=== PATIENT | female | born 1985 | race Caucasian/White ===

== ENCOUNTER 2016-09-04 00:23 | Emergency (ER) | payer OTHER ==
[2016-09-04] MEDS ORDERED: SODIUM CHLORIDE 0.9% 1,000 ML IV STA (00:46)
[2016-09-04 01:00] VITALS: RESP 16
--- NOTE | 2016-09-04 01:17 | ED ---
Abdominal Pain HPI - General Chief Complaint: Abdominal Pain Stated Complaint: lower abd pain Time Seen by Provider: 09/04/16 00:44 Source: patient, RN notes reviewed Mode of arrival: ambulatory Limitations: no limitations - History of Present Illness Initial Comments: 31-year-old female presents emergency Department chief complaint of right lower quadrant abdominal pain. Patient states started last 2 days. Patient states that she is test found out. Patient states her last menstrual cycle was 4 weeks ago. Patient is A1. Patient denies any nausea, vomiting diarrhea constipation. Denies any vaginal bleeding or vaginal discharge. Denies any dysuria hematuria. She states that she does have polycystic ovarian disease and states that it slowly resembles ovarian cyst feeling. Patient states that she sees an [employer] and [facility] - Related Data Home Medications Medication Instructions Recorded Confirmed Pnv with Ca,No.72/Iron/FA 1 tab PO DAILY 09/21/15 09/04/16 [ Plus Tablet] FLUoxetine HCL [Fluoxetine HCl] 20 mg PO HS 05/03/16 09/04/16 Allergies Allergy/AdvReac Type Severity Reaction Status Date / Time hydromorphone [From Dilaudid] Allergy Rash/Hives Verified 09/04/16 00:33 morphine Allergy Anaphylaxis Verified 07/02/16 18:14 Review of Systems ROS Statement: Those systems with pertinent positive or pertinent negative responses have been documented in the HPI. ROS Other: All systems not noted in ROS Statement are negative. 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 Absent: tenderness, meningismus, lymphadenopathy Respiratory exam: Present: normal lung sounds bilaterally. Absent: respiratory distress, wheezes, rales, rhonchi, stridor Cardiovascular Exam: Present: regular rate, normal rhythm, normal heart sounds. Absent: systolic murmur, diastolic murmur, rubs, gallop, clicks GI/Abdominal exam: Present: soft, tenderness (Mild suprapubic to right lower quadrant tenderness), normal bowel sounds. Absent: distended, guarding, rebound , rigid Back exam: Absent: CVA tenderness (R), CVA tenderness (L) Neurological exam: Present: alert, oriented X3, CN II-XII intact Skin exam: Present: warm, dry, intact, normal color. Absent: rash Course Vital Signs 09/04/16 09/04/16 00:30 00:59 Temperature 98.0 F 98.9 F Pulse Rate 90 87 Respiratory 18 16 Rate Blood Pressure 123/69 120/64 O2 Sat by Pulse 100 99 Oximetry Medical Decision Making - Medical Decision Making 31-year-old female presented emergency department for abdominal pain and . Patient's ultrasound shows gestational sac early . Patient 's laboratory within normal limits. Patient does not want a pelvic exam were rather have [employer] to this. Patient will be discharged with follow-up. Return parameters were discussed. - Lab Data Result diagrams: 09/04/16 00:48 09/04/16 00:48 Lab Results 09/04/16 09/04/16 09/04/16 Range/Units 00:48 00:48 00:48 WBC 8.6 (3.8-10.6) k/uL RBC 4.42 (3.80-5.40) m/uL Hgb 13.0 (11.4-16.0) gm/dL Hct 37.5 (34.0-46.0) % MCV 84.9 (80.0-100.0) fL MCH 29.5 (25.0-35.0) pg MCHC 34.7 (31.0-37.0) g/dL RDW 12.9 (11.5-15.5) % Plt Count 263 (150-450) k/uL Neutrophils % 57 % Lymphocytes % 32 % Monocytes % 6 % Eosinophils % 3 % Basophils % 1 % Neutrophils # 4.9 (1.3-7.7) k/uL Lymphocytes # 2.7 (1.0-4.8) k/uL Monocytes # 0.5 (0-1.0) k/uL Eosinophils # 0.3 (0-0.7) k/uL Basophils # 0.1 (0-0.2) k/uL Sodium 142 (137-145) mmol/L Potassium 3.9 (3.5-5.1) mmol/L Chloride 110 H (98-107) mmol/L Carbon Dioxide 21 L (22-30) mmol/L Anion Gap 11 mmol/L BUN 8 (7-17) mg/dL Creatinine 0.60 (0.52-1.04) mg/dL Est GFR (MDRD) Af Amer >60 (>60 ml/min/1.73 sqM) Est GFR (MDRD) Non-Af >60 (>60 ml/min/1.73 sqM) Glucose 100 H (74-99) mg/dL Calcium 9.0 (8.4-10.2) mg/dL Total Bilirubin 0.3 (0.2-1.3) mg/dL AST 21 (14-36) U/L ALT 47 (9-52) U/L Alkaline Phosphatase 58 (38-126) U/L Total Protein 6.8 (6.3-8.2) g/dL Albumin 4.1 (3.5-5.0) g/dL Amylase <30 L (30-110) U/L Lipase 110 (23-300) U/L HCG, Quant mIU/mL Urine Color Urine Appearance (Clear) Urine pH (5.0-8.0) Ur Specific [place] (1.001-1.035) Urine Protein (Negative) Urine Glucose (UA) (Negative) Urine Ketones (Negative) Urine Blood (Negative) Urine Nitrate (Negative) Urine Bilirubin (Negative) Urine Urobilinogen (<2.0) mg/dL Ur Leukocyte Esterase (Negative) Urine RBC (0-5) /hpf Urine WBC (0-5) /hpf Ur Squamous Epith Cells (0-4) /hpf Urine Bacteria (None) /hpf Urine Mucus (None) /hpf Urine HCG, Qual Detected (Not Detectd) 09/04/16 09/04/16 Range/Units 00:48 00:48 WBC (3.8-10.6) k/uL RBC (3.80-5.40) m/uL Hgb (11.4-16.0) gm/dL Hct (34.0-46.0) % MCV (80.0-100.0) fL MCH (25.0-35.0) pg MCHC (31.0-37.0) g/dL RDW (11.5-15.5) % Plt Count (150-450) k/uL Neutrophils % % Lymphocytes % % Monocytes % % Eosinophils % % Basophils % % Neutrophils # (1.3-7.7) k/uL Lymphocytes # (1.0-4.8) k/uL Monocytes # (0-1.0) k/uL Eosinophils # (0-0.7) k/uL Basophils # (0-0.2) k/uL Sodium (137-145) mmol/L Potassium (3.5-5.1) mmol/L Chloride (98-107) mmol/L Carbon Dioxide (22-30) mmol/L Anion Gap mmol/L BUN (7-17) mg/dL Creatinine (0.52-1.04) mg/dL Est GFR (MDRD) Af Amer (>60 ml/min/1.73 sqM) Est GFR (MDRD) Non-Af (>60 ml/min/1.73 sqM) Glucose (74-99) mg/dL Calcium (8.4-10.2) mg/dL Total Bilirubin (0.2-1.3) mg/dL AST (14-36) U/L ALT (9-52) U/L Alkaline Phosphatase (38-126) U/L Total Protein (6.3-8.2) g/dL Albumin (3.5-5.0) g/dL Amylase (30-110) U/L Lipase (23-300) U/L HCG, Quant 2363.3 mIU/mL Urine Color Yellow Urine Appearance Clear (Clear) Urine pH 6.0 (5.0-8.0) Ur Specific [place] 1.029 (1.001-1.035) Urine Protein 1+ H (Negative) Urine Glucose (UA) Negative (Negative) Urine Ketones Trace H (Negative) Urine Blood Negative (Negative) Urine Nitrate Negative (Negative) Urine Bilirubin Negative (Negative) Urine Urobilinogen 2.0 (<2.0) mg/dL Ur Leukocyte Esterase Negative (Negative) Urine RBC 2 (0-5) /hpf Urine WBC 5 (0-5) /hpf Ur Squamous Epith Cells 8 H (0-4) /hpf Urine Bacteria Rare H (None) /hpf Urine Mucus Few H (None) /hpf Urine HCG, Qual (Not Detectd) Disposition Clinical Impression: Abdominal pain during , Ovarian cyst Disposition: HOME SELF-CARE Condition: Stable Instructions: Abdominal Pain in (ED) Additional Instructions: Please return to the Emergency Department if symptoms worsen or any other concerns. Time of Disposition: 03:05
[2016-09-04 01:31] LABS: ALT 47 U/L (9-52); AST 21 U/L (14-36); Alkaline Phosphatase 58 U/L (38-126); Amylase <30 U/L (30-110); Anion Gap 11 mmol/L; Blood Urea Nitrogen 8 mg/dL (7-17); Carbon Dioxide 21 mmol/L (22-30); Chloride 110 mmol/L (98-107); Glucose 100 mg/dL (74-99); Non-African American GFR(MDRD) >60 (>60 ml/min/1.73 sqM); Potassium 3.9 mmol/L (3.5-5.1); Sodium 142 mmol/L (137-145); Total Bilirubin 0.3 mg/dL (0.2-1.3); Total Protein 6.8 g/dL (6.3-8.2)
[2016-09-04 01:33] LABS: Basophils # (A) 0.1 k/uL (0-0.2); Basophils % (A) 1 %; CH 30.6; CHCM 36.1; Eosinophils # (A) 0.3 k/uL (0-0.7); Eosinophils % (A) 3 %; HCT 37.5 % (34.0-46.0); HDW 2.72; Luc % (Auto) 2; Lymphocytes # (A) 2.7 k/uL (1.0-4.8); Lymphocytes % (A) 32 %; MCH 29.5 pg (25.0-35.0); MCHC 34.7 g/dL (31.0-37.0); MCV 84.9 fL (80.0-100.0); Mean Platelet Volume 7.5; Monocytes # (A) 0.5 k/uL (0-1.0); Monocytes % (A) 6 %; Neutrophils # (A) 4.9 k/uL (1.3-7.7); Neutrophils % (A) 57 %; RBC 4.42 m/uL (3.80-5.40); RDW 12.9 % (11.5-15.5); WBC 8.6 k/uL (3.8-10.6); WBC (Perox) 8.84
[2016-09-04 01:34] LABS: Appearance,Urine Clear (Clear); Bacteria,Urine Rare /hpf; Bilirubin,Urine Negative (Negative); Glucose,Urine (UA) Negative (Negative); Ketones,Urine Trace (Negative); Leukocyte Esterase,Urine Negative (Negative); Mucus,Urine Few /hpf; Nitrite,Urine Negative (Negative); Particle Count 4869; Protein,Urine 1+ (Negative); RBC,Urine 2 /hpf (0-5); Specific Gravity,Urine 1.029 (1.001-1.035); Squamous Epithelial Cell,Urine 8 /hpf (0-4); UA Billing (MACRO vs. MICRO) MICRO; WBC,Urine 5 /hpf (0-5)
--- NOTE | 2016-09-04 03:01 | US ---
EXAMINATION TYPE: US OB <=14 wks transvag DATE OF EXAM: 09/04/2016 2:34 AM COMPARISON: NONE CLINICAL HISTORY: RLQ pain EXAM PERFORMED: Transabdominal (TA) EXAM MEASUREMENTS: GESTATIONAL AGE / DATING Physician Established: Not yet establsihed Dates by LMP: (4 weeks/6 days) EDC: 05/08/2017 Dates by First Scan: No prior Dates by Current Scan: Too early to calculate MATERNAL ANATOMY Uterus: 9.2 x 5.8 x 5.8 cm Right Ovary: 2.2 x 1.5 x 2.0 cm Left Ovary: 4.9 x 3.4 x 4.1 cm Post CDS / Adnexa: wnl Presence of free fluid: No Presence of corpus luteal cyst: Left Ovary= 3.5 x 3.2 x 3.5 cm Presence of subchorionic bleed: No GESTATION / SURVEY MSD: 0.5 cm Too early to calculate Date of LMP: 08/01/2016 TECHNOLOGIST IMPRESSION: Possible early IUP with gestational sac within uterus too early to calculat e dates/ Cyst left ovary IMPRESSION: 4 cm left ovarian cyst. No solid adnexal mass. There is possible early intrauterine gestational sac t hat measures 5 mm. This would be less than 6 weeks' gestation. Follow-up exam in 2 weeks is recommend ed to confirm a living fetus if clinically indicated.
[2016-09-04 03:06] VITALS: BP 123/61; PULSE 81; TEMP 97.9
== END 2016-09-04 03:12 | disposition home or self-care (01) ==
LOC: EC 00:23
DX: O34.81 Maternal care for other abnormalities of pelvic organs, first trimester (principal); N83.202 Unspecified ovarian cyst, left side; F32.9 Major depressive disorder, single episode, unspecified; Z3A.01 Less than 8 weeks gestation of pregnancy; Z88.5 Allergy status to narcotic agent; Z79.899 Other long term (current) drug therapy
CPT/HCPCS: 36415; 76801; 80053; 81001; 81025; 82150; 83690; 84702; 85025; 96360; 99284

== ENCOUNTER 2016-09-24 13:56 | Emergency (ER) | payer OTHER ==
[2016-09-24 14:03] VITALS: RESP 16
--- NOTE | 2016-09-24 14:36 | ED ---
General Adult HPI - General Chief complaint: Abdominal Pain Stated complaint: Abd Pain/ left side/7 weeks Time Seen by Provider: 09/24/16 14:05 Source: patient, RN notes reviewed, old records reviewed Mode of arrival: ambulatory Limitations: no limitations - History of Present Illness Initial comments: 31-year-old female presenting for lower abdominal pain. Patient has a history of ovarian cysts. She is concerned that this is what is causing her pain currently. She also admits that she is about 7-8 weeks . She was seen in our ER about 2-1/2 weeks ago for lower abdominal pain and was found to be that time. She did have an ultrasound at that time that showed possible early . She has not followed up with OB at this point, but states she does have an [facility] [employer] follow-up appointment scheduled for Monday. She has been having some morning sickness with nausea but has not vomited. She does have some decreased appetite secondary to this. She has not had any complications in prior pregnancies. She denies any vaginal bleeding or discharge. - Related Data Home Medications Medication Instructions Recorded Confirmed Pnv with Ca,No.72/Iron/FA 1 tab PO DAILY 09/21/15 09/24/16 [ Plus Tablet] Albuterol Inhaler [Ventolin Hfa 1 - 2 puff INHALATION RT-Q6H PRN 09/24/16 Inhaler] Ferrous Sulfate [Feosol] 325 mg PO DAILY 09/24/16 09/24/16 Previous Rx's Medication Instructions Recorded Nitrofurantoin Monohyd/M-Cryst 100 mg PO BID #14 cap 09/24/16 [Macrobid] Allergies Allergy/AdvReac Type Severity Reaction Status Date / Time hydromorphone [From Dilaudid] Allergy Rash/Hives Verified 09/24/16 14:18 morphine Allergy Anaphylaxis Verified 09/24/16 14:18 Review of Systems ROS Statement: Those systems with pertinent positive or pertinent negative responses have been documented in the HPI. ROS Other: All systems not noted in ROS Statement are negative. 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 No acute distress. Does not appear acutely ill. Obese Eyes: LILLIE, EOM intact. No nystagmus. No scleral icterus. HENT: Atraumatic, normocephalic. Mucous membranes moist. Trachea midline. Neck: The neck is supple, there is no tenderness or JVD. Cardiovascular: Regular rate and rhythm. No murmur, rub, or gallop is appreciated. Distal pulses intact. Respiratory: Lungs are clear to auscultation bilaterally. No wheezes, rales, rhonchi. No respiratory distress. Gastrointestinal: Soft, mild tenderness left lower quadrant. No rebound or guarding. Non-distended. No masses or organomegaly noted. No CVA tenderness. Musculoskeletal: No tenderness. Normal ROM. No gross deformity. No strength deficits. Neurological: A&Ox3. CN II-XII grossly intact, There are no obvious motor or sensory deficits. Coordination appears grossly intact. Speech is normal. Skin: Skin is warm and dry and no rashes or lesions are noted. Psychiatric: Cooperative, appropriate mood & affect, normal judgment. Limitations: no limitations Course Vital Signs 09/24/16 14:01 Temperature 98.2 F Pulse Rate 83 Respiratory 16 Rate Blood Pressure 118/53 O2 Sat by Pulse 97 Oximetry Medical Decision Making - Medical Decision Making 31-year-old female presenting for lower abdominal pain in early . She states she does have a known left ovarian cyst which is bothering past. She has not had care at this point but does have follow-up appointment with OB on Monday. She is taking vitamins. Patient with mild left lower quadrant tenderness on examination of the no evidence of focal or diffuse peritonitis at this time. Lab workup was performed and grossly unremarkable. Pelvic ultrasound was performed showing IUP with reassuring heart tones. UA with possible infection, given , plan to treat. Patient was reevaluated and updated on imaging results. Discussed Tylenol for pain. Discussed close follow-up with PCP. Patient states she believes that this cyst on ultrasound today is actually improved from her prior ultrasounds. Discussed concerning signs and symptoms for immediate return to the ED. Patient is agreeable with plan of discharge home. Patient plans follow up with OB on Monday. She does have prenatals and does not require prescriptions time. - Lab Data Result diagrams: 09/24/16 14:36 09/24/16 14:36 Lab Results 09/24/16 09/24/16 09/24/16 Range/Units 14:36 14:36 14:36 WBC 7.3 (3.8-10.6) k/uL RBC 4.53 (3.80-5.40) m/uL Hgb 13.4 (11.4-16.0) gm/dL Hct 39.0 (34.0-46.0) % MCV 86.1 (80.0-100.0) fL MCH 29.6 (25.0-35.0) pg MCHC 34.4 (31.0-37.0) g/dL RDW 12.9 (11.5-15.5) % Plt Count 221 (150-450) k/uL Neutrophils % 65 % Lymphocytes % 25 % Monocytes % 4 % Eosinophils % 4 % Basophils % 0 % Neutrophils # 4.8 (1.3-7.7) k/uL Lymphocytes # 1.8 (1.0-4.8) k/uL Monocytes # 0.3 (0-1.0) k/uL Eosinophils # 0.3 (0-0.7) k/uL Basophils # 0.0 (0-0.2) k/uL Sodium 139 (137-145) mmol/L Potassium 4.0 (3.5-5.1) mmol/L Chloride 106 (98-107) mmol/L Carbon Dioxide 22 (22-30) mmol/L Anion Gap 11 mmol/L BUN 5 L (7-17) mg/dL Creatinine 0.60 (0.52-1.04) mg/dL Est GFR (MDRD) Af Amer >60 (>60 ml/min/1.73 sqM) Est GFR (MDRD) Non-Af >60 (>60 ml/min/1.73 sqM) Glucose 82 (74-99) mg/dL Calcium 9.5 (8.4-10.2) mg/dL Urine Color Yellow Urine Appearance Cloudy H (Clear) Urine pH 6.0 (5.0-8.0) Ur Specific [place] 1.018 (1.001-1.035) Urine Protein Negative (Negative) Urine Glucose (UA) Negative (Negative) Urine Ketones Negative (Negative) Urine Blood Negative (Negative) Urine Nitrate Negative (Negative) Urine Bilirubin Negative (Negative) Urine Urobilinogen <2.0 (<2.0) mg/dL Ur Leukocyte Esterase Small H (Negative) Urine WBC 3 (0-5) /hpf Ur Squamous Epith Cells 8 H (0-4) /hpf Urine Bacteria Rare H (None) /hpf Urine Mucus Rare H (None) /hpf - Radiology Data Radiology results: report reviewed, image reviewed Disposition Clinical Impression: Abdominal pain affecting , Ovarian cyst, UTI (urinary tract infection) Disposition: HOME SELF-CARE Condition: Stable Instructions: Abdominal Pain in (ED), Urinary Tract Infection in Women (DC) Additional Instructions: Please take Tylenol for pain. Please keep your follow up with [facility] on Monday. Prescriptions: Nitrofurantoin Monohyd/M-Cryst [Macrobid] 100 mg PO BID #14 cap Referrals: Tomas Brown MD [Primary Care Provider] - 1-2 days Tom Dietz DO [Doctor of Osteopathic Medicine] - 1-2 days Time of Disposition: 15:52
[2016-09-24 14:48] LABS: Basophils % (A) 0 %; CH 30.7; CHCM 35.7; Eosinophils # (A) 0.3 k/uL (0-0.7); Eosinophils % (A) 4 %; HDW 2.74; HGB 13.4 gm/dL (11.4-16.0); Luc # (Auto) 0.15; Luc % (Auto) 2; Lymphocytes # (A) 1.8 k/uL (1.0-4.8); Lymphocytes % (A) 25 %; MCH 29.6 pg (25.0-35.0); MCHC 34.4 g/dL (31.0-37.0); MCV 86.1 fL (80.0-100.0); Mean Platelet Volume 7.6; Monocytes # (A) 0.3 k/uL (0-1.0); Monocytes % (A) 4 %; Neutrophils # (A) 4.8 k/uL (1.3-7.7); Neutrophils % (A) 65 %; RBC 4.53 m/uL (3.80-5.40); RDW 12.9 % (11.5-15.5); WBC 7.3 k/uL (3.8-10.6); WBC (Perox) 7.53
[2016-09-24 14:51] LABS: Appearance,Urine Cloudy (Clear); Bacteria,Urine Rare /hpf; Bilirubin,Urine Negative (Negative); Glucose,Urine (UA) Negative (Negative); Ketones,Urine Negative (Negative); Leukocyte Esterase,Urine Small (Negative); Mucus,Urine Rare /hpf; Nitrite,Urine Negative (Negative); Particle Count 3415; Protein,Urine Negative (Negative); Specific Gravity,Urine 1.018 (1.001-1.035); Squamous Epithelial Cell,Urine 8 /hpf (0-4); UA Billing (MACRO vs. MICRO) MICRO; Urobilinogen,Urine <2.0 mg/dL (<2.0); WBC,Urine 3 /hpf (0-5)
[2016-09-24 14:57] LABS: Anion Gap 11 mmol/L; Blood Urea Nitrogen 5 mg/dL (7-17); Calcium 9.5 mg/dL (8.4-10.2); Carbon Dioxide 22 mmol/L (22-30); Chloride 106 mmol/L (98-107); Glucose 82 mg/dL (74-99); Non-African American GFR(MDRD) >60 (>60 ml/min/1.73 sqM); Sodium 139 mmol/L (137-145)
--- NOTE | 2016-09-24 15:39 | US ---
EXAMINATION TYPE: US OB <= 14 wk fetus DATE OF EXAM: 09/24/2016 3:03 PM COMPARISON: NONE CLINICAL HISTORY: Pain. LLQ pain EXAM PERFORMED: EXAM MEASUREMENTS: GESTATIONAL AGE / DATING Physician Established: not established Dates by LMP: (7 weeks/5 days) EDC: 05/08/2017 Dates by First Scan: no IUP seen Dates by Current Scan for: (7 weeks/5 days) EDC: 05/08/2017 MATERNAL ANATOMY Uterus: 9.9 x 5.2 x 7.9 cm Right Ovary: 2.4 x 1.9 x 1.7 cm Left Ovary: 4.7 x 3.5 x 3.8 cm Post CDS / Adnexa: wnl Presence of free fluid: none Presence of corpus luteal cyst: left ovary measuring 3.8 x 3.1 x 3.5 cm GESTATION / SURVEY CRL: 1.4 cm (7 weeks/5 days) Yolk Sac (normal less than 6mm): 0.3 cm Heart Rate: 158 bpm Rhythm: Normal IUP: Viable IUP Date of LMP: 08/01/2016 Beta HcG (if available): not available TECHNOLOGIST IMPRESSION: viable IUP that correlates with LMP IMPRESSION: There is a 3.5 cm simple left ovarian cyst. Ultrasound gestational age is 7 weeks 5 days. I see no complicating process.
[2016-09-24 16:06] VITALS: BP 120/70; PULSE 79; TEMP 97.8
== END 2016-09-24 16:05 | disposition home or self-care (01) ==
LOC: EC 13:56
DX: O23.41 Unspecified infection of urinary tract in pregnancy, first trimester (principal); O34.81 Maternal care for other abnormalities of pelvic organs, first trimester; N83.202 Unspecified ovarian cyst, left side; Z88.5 Allergy status to narcotic agent
CPT/HCPCS: 36415; 76801; 80048; 81001; 84702; 85025; 99284

== ENCOUNTER 2016-11-28 16:16 | Emergency (ER) | payer OTHER ==
[2016-11-28] MEDS ORDERED: ACETAMINOPHEN TAB 500 MG TAB PO STA (18:23)
[2016-11-28] MEDS ORDERED: SODIUM CHLORIDE 0.9% 1,000 ML IV STA (18:23)
[2016-11-28] MEDS ORDERED: METOCLOPRAMIDE 5 MG/ML 2 ML VIAL IVP STA (18:27)
--- NOTE | 2016-11-28 18:28 | ED ---
General Adult HPI - General Chief complaint: Fever Stated complaint: Vomiting Time Seen by Provider: 11/28/16 18:18 Source: patient, RN notes reviewed Mode of arrival: ambulatory Limitations: no limitations - History of Present Illness Initial comments: 31-year-old female presents emergency Department chief complaint of fever, nausea vomiting. Patient states that she's been vomiting since last night. She states she only has pain when she vomits. Patient states she also has been seizing, having runny nose mild cough. Patient denies ear pain, sore throat, headache, dizziness. Patient states she is 17 weeks and is A1. Patient states she sees an MEDICAL SECRETARY not locally. Patient states that she just does not feel well. Patient denies any sick contacts. Patient did not have a flu shot this year. Patient has not taken any recent Tylenol. Patient denies back pain, flank pain, vaginal bleeding vaginal discharge. Denies abdominal cramping. - Related Data Home Medications Medication Instructions Recorded Confirmed Pnv with Ca,No.72/Iron/FA 1 tab PO DAILY 09/21/15 11/28/16 [ Plus Tablet] Cholecalciferol [Vitamin D3] 4,000 unit PO DAILY 11/28/16 11/28/16 FLUoxetine HCL [PROzac] 20 mg PO DAILY 11/28/16 11/28/16 Previous Rx's Medication Instructions Recorded Oseltamivir [Tamiflu] 75 mg PO Q12HR #10 cap 11/28/16 Allergies Allergy/AdvReac Type Severity Reaction Status Date / Time hydromorphone [From Dilaudid] Allergy Rash/Hives Verified 11/28/16 19:05 morphine Allergy Rash/Hives Verified 11/28/16 19:05 tomato Allergy Anaphylaxis Verified 11/28/16 19:05 Review of Systems ROS Statement: Those systems with pertinent positive or pertinent negative responses have been documented in the HPI. ROS Other: All systems not noted in ROS Statement are negative. 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 Absent: scleral icterus, conjunctival injection, periorbital swelling ENT exam: Present: normal exam, normal oropharynx, mucous membranes moist, TM's normal bilaterally, normal external ear exam Neck exam: Present: normal inspection, full ROM. Absent: tenderness, meningismus, lymphadenopathy Respiratory exam: Present: normal lung sounds bilaterally. Absent: respiratory distress, wheezes, rales, rhonchi, stridor Cardiovascular Exam: Present: normal rhythm, tachycardia, normal heart sounds. Absent: systolic murmur, diastolic murmur, rubs, gallop, clicks GI/Abdominal exam: Present: soft, normal bowel sounds. Absent: distended, tenderness, guarding, rebound, rigid Back exam: Absent: CVA tenderness (R), CVA tenderness (L) Neurological exam: Present: alert Skin exam: Present: warm, dry, intact, normal color. Absent: rash Course Vital Signs 11/28/16 11/28/16 16:52 20:08 Temperature 101.2 F H 101.0 F H Pulse Rate 133 H 116 H Respiratory 18 20 Rate Blood Pressure 117/56 126/57 O2 Sat by Pulse 98 98 Oximetry Medical Decision Making - Medical Decision Making 31-year-old female presents emergency Department with chief complaint of fever chills nausea vomiting. Patient states was hydrated, given acetaminophen states she feels much better. Patient is influenza B-positive. Patient is currently had normal heart tones. Patient will be given Tamiflu at this time. She was advised to make sure she informs her MEDICAL SECRETARY that she is instructed Tamiflu. Return parameters were discussed. - Lab Data Result diagrams: 11/28/16 18:55 11/28/16 18:55 Lab Results 11/28/16 11/28/16 11/28/16 Range/Units 18:55 18:55 18:55 WBC 5.6 (3.8-10.6) k/uL RBC 3.71 L (3.80-5.40) m/uL Hgb 11.6 (11.4-16.0) gm/dL Hct 32.8 L (34.0-46.0) % MCV 88.4 (80.0-100.0) fL MCH 31.3 (25.0-35.0) pg MCHC 35.4 (31.0-37.0) g/dL RDW 13.7 (11.5-15.5) % Plt Count 160 (150-450) k/uL Neutrophils % 78 % Lymphocytes % 11 % Monocytes % 7 % Eosinophils % 0 % Basophils % 0 % Neutrophils # 4.4 (1.3-7.7) k/uL Lymphocytes # 0.6 L (1.0-4.8) k/uL Monocytes # 0.4 (0-1.0) k/uL Eosinophils # 0.0 (0-0.7) k/uL Basophils # 0.0 (0-0.2) k/uL Sodium 136 L (137-145) mmol/L Potassium 3.3 L (3.5-5.1) mmol/L Chloride 106 (98-107) mmol/L Carbon Dioxide 18 L (22-30) mmol/L Anion Gap 12 mmol/L BUN 4 L (7-17) mg/dL Creatinine 0.58 (0.52-1.04) mg/dL Est GFR (MDRD) Af Amer >60 (>60 ml/min/1.73 sqM) Est GFR (MDRD) Non-Af >60 (>60 ml/min/1.73 sqM) Glucose 91 (74-99) mg/dL Calcium 8.8 (8.4-10.2) mg/dL Total Bilirubin 0.7 (0.2-1.3) mg/dL AST 19 (14-36) U/L ALT 21 (9-52) U/L Alkaline Phosphatase 76 (38-126) U/L Total Protein 7.0 (6.3-8.2) g/dL Albumin 3.8 (3.5-5.0) g/dL Urine Color Urine Appearance (Clear) Urine pH (5.0-8.0) Ur Specific [place] (1.001-1.035) Urine Protein (Negative) Urine Glucose (UA) (Negative) Urine Blood (Negative) Urine Nitrite (Negative) Urine Bilirubin (Negative) Urine Urobilinogen (<2.0) mg/dL Ur Leukocyte Esterase (Negative) Influenza Type A RNA Not Detected (Not Detectd) Influenza Type B (PCR) Detected H (Not Detectd) 11/28/16 Range/Units 20:03 WBC (3.8-10.6) k/uL RBC (3.80-5.40) m/uL Hgb (11.4-16.0) gm/dL Hct (34.0-46.0) % MCV (80.0-100.0) fL MCH (25.0-35.0) pg MCHC (31.0-37.0) g/dL RDW (11.5-15.5) % Plt Count (150-450) k/uL Neutrophils % % Lymphocytes % % Monocytes % % Eosinophils % % Basophils % % Neutrophils # (1.3-7.7) k/uL Lymphocytes # (1.0-4.8) k/uL Monocytes # (0-1.0) k/uL Eosinophils # (0-0.7) k/uL Basophils # (0-0.2) k/uL Sodium (137-145) mmol/L Potassium (3.5-5.1) mmol/L Chloride (98-107) mmol/L Carbon Dioxide (22-30) mmol/L Anion Gap mmol/L BUN (7-17) mg/dL Creatinine (0.52-1.04) mg/dL Est GFR (MDRD) Af Amer (>60 ml/min/1.73 sqM) Est GFR (MDRD) Non-Af (>60 ml/min/1.73 sqM) Glucose (74-99) mg/dL Calcium (8.4-10.2) mg/dL Total Bilirubin (0.2-1.3) mg/dL AST (14-36) U/L ALT (9-52) U/L Alkaline Phosphatase (38-126) U/L Total Protein (6.3-8.2) g/dL Albumin (3.5-5.0) g/dL Urine Color Yellow Urine Appearance Clear (Clear) Urine pH 6.0 (5.0-8.0) Ur Specific [place] 1.019 (1.001-1.035) Urine Protein Trace H (Negative) Urine Glucose (UA) Negative (Negative) Urine Blood Negative (Negative) Urine Nitrite Negative (Negative) Urine Bilirubin Negative (Negative) Urine Urobilinogen 2.0 (<2.0) mg/dL Ur Leukocyte Esterase Negative (Negative) Influenza Type A RNA (Not Detectd) Influenza Type B (PCR) (Not Detectd) Disposition Clinical Impression: Influenza Disposition: HOME SELF-CARE Condition: Stable Instructions: Influenza (ED) Additional Instructions: Please return to the Emergency Department if symptoms worsen or any other concerns. Continue Tylenol as directed for the fever. Prescriptions: Oseltamivir [Tamiflu] 75 mg PO Q12HR #10 cap Time of Disposition: 20:22
[2016-11-28 19:11] LABS: Basophils % (A) 0 %; CH 31.2; CHCM 35.6; Eosinophils % (A) 0 %; HCT 32.8 % (34.0-46.0); HDW 2.97; HGB 11.6 gm/dL (11.4-16.0); Luc # (Auto) 0.16; Luc % (Auto) 3; Lymphocytes # (A) 0.6 k/uL (1.0-4.8); Lymphocytes % (A) 11 %; MCH 31.3 pg (25.0-35.0); MCHC 35.4 g/dL (31.0-37.0); MCV 88.4 fL (80.0-100.0); Mean Platelet Volume 7.7; Monocytes # (A) 0.4 k/uL (0-1.0); Monocytes % (A) 7 %; Neutrophils # (A) 4.4 k/uL (1.3-7.7); Neutrophils % (A) 78 %; RBC 3.71 m/uL (3.80-5.40); RDW 13.7 % (11.5-15.5); WBC 5.6 k/uL (3.8-10.6); WBC (Perox) 5.87
[2016-11-28 19:20] LABS: ALT 21 U/L (9-52); AST 19 U/L (14-36); Alkaline Phosphatase 76 U/L (38-126); Anion Gap 12 mmol/L; Blood Urea Nitrogen 4 mg/dL (7-17); Calcium 8.8 mg/dL (8.4-10.2); Carbon Dioxide 18 mmol/L (22-30); Chloride 106 mmol/L (98-107); Glucose 91 mg/dL (74-99); Non-African American GFR(MDRD) >60 (>60 ml/min/1.73 sqM); Potassium 3.3 mmol/L (3.5-5.1); Sodium 136 mmol/L (137-145); Total Bilirubin 0.7 mg/dL (0.2-1.3)
[2016-11-28] MEDS ORDERED: SODIUM CHLORIDE 0.9% 1,000 ML IV ONE (19:23)
[2016-11-28 20:16] LABS: Appearance,Urine Clear (Clear); Bilirubin,Urine Negative (Negative); Glucose,Urine (UA) Negative (Negative); Ketones,Urine 4+ (Negative); Leukocyte Esterase,Urine Negative (Negative); Nitrite,Urine Negative (Negative); Protein,Urine Trace (Negative); Specific Gravity,Urine 1.019 (1.001-1.035); UA Billing (MACRO vs. MICRO) CHEM
[2016-11-28 20:48] VITALS: BP 122/57; PULSE 102; RESP 16; TEMP 97.7
== END 2016-11-28 20:46 | disposition home or self-care (01) ==
LOC: EC 16:16
DX: O99.512 Diseases of the respiratory system complicating pregnancy, second trimester (principal); J10.1 Influenza due to other identified influenza virus with other respiratory manifestations; O99.89 Other specified diseases and conditions complicating pregnancy, childbirth and the puerperium; R00.0 Tachycardia, unspecified; O99.342 Other mental disorders complicating pregnancy, second trimester; F32.9 Major depressive disorder, single episode, unspecified; F41.9 Anxiety disorder, unspecified; Z79.899 Other long term (current) drug therapy; Z88.5 Allergy status to narcotic agent; Z91.018 Allergy to other foods; Z3A.17 17 weeks gestation of pregnancy
CPT/HCPCS: 99283; 96374; 96361; 36415; 80053; 85025; 81003; 87040; 87086; 87502; J2765

== ENCOUNTER 2017-04-19 15:57 | Outpatient (CLI) | payer OTHER ==
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
[2017-04-19 17:20] VITALS: BP 125/74; PULSE 103; RESP 18; TEMP 95.9
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
== END 2017-04-19 19:05 | disposition home or self-care (01) ==
LOC: FBPOP 15:57
PROVIDERS: ATTEND Obstetrics & Gynecology
DX: O99.89 Other specified diseases and conditions complicating pregnancy, childbirth and the puerperium (principal); R10.9 Unspecified abdominal pain
CPT/HCPCS: 59025; 76805; G0463; 99215

== ENCOUNTER → 2017-10-20 | Outpatient (CLI) | payer OTHER ==
--- NOTE | 2017-10-20 14:29 | MR ---
EXAMINATION TYPE: MR brain/lspine wo con DATE OF EXAM: 10/20/2017 COMPARISON: NONE HISTORY: Headache, low back pain CONTRAST: Performed utilizing 0 mL intravenous Gadavist gadolinium contrast. TECHNIQUE: Multiplanar, multiecho imaging on a 3.0 Sharon magnet is performed through the brain. Stud y is performed within 24 hours of arrival to the hospital. The craniovertebral junction is normal. The pituitary is normal. Diffusion-weighted imaging is performed. No abnormal hyperintensity is present to suggest an acute i ntracranial infarct or acute ischemic change. There are scattered punctate areas of hyperintensity on T2 and Inversion Recovery weighted sequences which are non-specific but can be related to microvascular ischemic changes. Ventricles and sulci are appropriate for the patient age. There is a retention cyst within the right maxillary sinus. Retention cyst is within the left sphenoi d sinus. Minimal mucosal thickening within ethmoid air cells may be present. IMPRESSIONS: 1. No acute intracranial process. 2. Mucosal thickening and retention cyst discussed above. EXAMINATION TYPE: MR brain/lspine wo con DATE OF EXAM: 10/20/2017 COMPARISON: 10/28/2010 HISTORY: Headache, low back pain CONTRAST: 0 mL intravenous Gadavist. TECHNIQUE: Multiplanar, multisequence images of the lumbar spine were acquired. FINDINGS: L5-S1: Small amount of subligamentous disc extension may be present without thecal sac compression. No spinal canal stenosis. No foraminal stenosis. L4-L5: No significant disc bulge or disc herniation. No spinal canal stenosis. No foraminal stenosi s. L3-L4: Minimal disc bulge is present with anterior thecal sac flattening. No spinal canal stenosis or neural foraminal stenosis is present. This is stable from comparison. L2-L3: No significant disc bulge or disc herniation. No spinal canal stenosis. No foraminal stenosi s. L1-L2: No significant disc bulge or disc herniation. No spinal canal stenosis. No foraminal stenosi s. T12-L1: No significant disc bulge or disc herniation. No spinal canal stenosis. No foraminal stenos is. IMPRESSION: 1. Minimal disc bulge L3-4 with anterior thecal sac flattening. This is stable from 2010. 2. Minimal central disc bulging L5-S1 without thecal sac compression.
== END | disposition home or self-care (01) ==
LOC: RADMRIMAIN 10:39
PROVIDERS: ATTEND Psychiatry & Neurology Neurology
DX: M51.27 Other intervertebral disc displacement, lumbosacral region (principal); G95.29 Other cord compression; R51 Headache; Z88.5 Allergy status to narcotic agent
CPT/HCPCS: 70551; 72148

== ENCOUNTER 2020-03-16 17:37 | Observation (INO) | payer OTHER ==
[2020-03-16] MEDS ORDERED: SODIUM CHLORIDE 0.9% 1,000 ML IV STA ×2 (18:09)
[2020-03-16] MEDS ORDERED: ASPIRIN 81 MG PO STA (18:09)
[2020-03-16] MEDS ORDERED: KETOROLAC 30 MG/ML 1 ML VIAL IVP STA (18:09)
--- NOTE | 2020-03-16 18:16 | ED ---
General Adult HPI - General Chief complaint: Chest Pain Stated complaint: chest pain Time Seen by Provider: 03/16/20 17:44 Source: patient, RN notes reviewed, old records reviewed Mode of arrival: wheelchair Limitations: no limitations - History of Present Illness Initial comments: 34 year old female presents emergency department today with 2 days of chest pain. She states it seems to be sharp in nature and onset of her chest. She states that it occurred while she was at work initially thought was a pulled muscle. She states that she went home from work today she was napping and woke up with worsening chest pain stating she had some pain in the left arm and episode of diaphoresis. She reports a strong family history of heart disease. She denies any personal history of smoking or diabetes or hypertension. She states that she is not currently . Denies any cough or shortness of breath associated with this. - Related Data Home Medications Medication Instructions Recorded Confirmed Pnv,Calcium 72/Iron/Folic Acid 1 tab PO DAILY 09/21/15 04/19/17 [ Plus Tablet] Allergies Allergy/AdvReac Type Severity Reaction Status Date / Time hydromorphone [From Dilaudid] Allergy Swelling Verified 03/16/20 17:43 morphine Allergy Rash/Hives Verified 03/16/20 17:43 tomato Allergy Anaphylaxis Verified 03/16/20 17:43 Review of Systems ROS Statement: Those systems with pertinent positive or pertinent negative responses have been documented in the HPI. ROS Other: All systems not noted in ROS Statement are negative. Past Medical History Past Medical History: Fibromyalgia, Osteoarthritis (OA) Additional Past Medical History / Comment(s): degen. disc in back History of Any Multi-Drug Resistant Organisms: None Reported Past Surgical History: Section, Cholecystectomy, Orthopedic Surgery Additional Past Surgical History / Comment(s): knee surgery Past Anesthesia/Blood Transfusion Reactions: Motion Sickness Past Psychological History: Anxiety, Depression Smoking Status: Never smoker Past Alcohol Use History: None Reported Past Drug Use History: None Reported General Exam - General Exam Comments Initial Comments: 34-year-old female. Alert and oriented 3. No significant distress. Limitations: no limitations General appearance: alert, in no apparent distress Head exam: Present: atraumatic, normocephalic, normal inspection Eye exam: Present: normal appearance, PERRL, EOMI. Absent: scleral icterus, conjunctival injection, periorbital swelling ENT exam: Present: normal exam, mucous membranes moist Neck exam: Present: normal inspection. Absent: tenderness, meningismus, lymphadenopathy Respiratory exam: Present: normal lung sounds bilaterally. Absent: respiratory distress, wheezes, rales, rhonchi, stridor Cardiovascular Exam: Present: regular rate, normal rhythm, normal heart sounds. Absent: systolic murmur, diastolic murmur, rubs, gallop, clicks GI/Abdominal exam: Present: soft, normal bowel sounds. Absent: distended, tenderness, guarding, rebound, rigid Extremities exam: Present: normal inspection, full ROM, normal capillary refill. Absent: tenderness, pedal edema, joint swelling, calf tenderness Back exam: Present: normal inspection, full ROM Neurological exam: Present: alert, oriented X3, CN II-XII intact Psychiatric exam: Present: normal affect, normal mood Skin exam: Present: warm, dry, intact, normal color. Absent: rash Course Vital Signs 03/16/20 03/16/20 03/16/20 17:40 18:11 18:21 Temperature 98.3 F Pulse Rate 102 H 86 Pulse Rate [ 83 Seals Engraver ] Respiratory 18 18 Rate Blood Pressure 122/82 124/73 O2 Sat by Pulse 100 99 Oximetry EKG Findings - EKG Comments: EKG Findings:: EKG was reviewed negative for acute process. Normal sinus rhythm normal EKG. Ventricular rate of 83 beats were minute period. Interval is 158 ms. QRS duration is 94 ms. QT QTc is 360/432 ms. Medical Decision Making - Medical Decision Making 34-year-old female presents emergency room today with chest pain. 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 She initially thought was muscle strain. She reports she rested. She was taking a nap woke up with a sudden onset of sharp chest pain with radiation down her arm and diaph oresis. EKG was reviewed and normal. Initial troponin and d-dimer are negative. Chest x-rays negative for acute process. Discussed the case with Dr. Valderrama and with family history recommended observation admission and Patient states that she saw her PCP earlier this month for similar complaints of pain and was supposed to have a echocardiogram done which has not been completed yet. Discussed this likely can be done during her admission. - Lab Data Result diagrams: 03/16/20 18:20 03/16/20 18:20 Lab Results 03/16/20 03/16/20 03/16/20 Range/Units 18:20 18:20 18:20 WBC 5.4 (3.8-10.6) k/uL RBC 4.30 (3.80-5.40) m/uL Hgb 13.2 (11.4-16.0) gm/dL Hct 37.8 (34.0-46.0) % MCV 87.9 (80.0-100.0) fL MCH 30.6 (25.0-35.0) pg MCHC 34.8 (31.0-37.0) g/dL RDW 12.8 (11.5-15.5) % Plt Count 237 (150-450) k/uL Neutrophils % 55 % Lymphocytes % 34 % Monocytes % 5 % Eosinophils % 4 % Basophils % 1 % Neutrophils # 3.0 (1.3-7.7) k/uL Lymphocytes # 1.9 (1.0-4.8) k/uL Monocytes # 0.3 (0-1.0) k/uL Eosinophils # 0.2 (0-0.7) k/uL Basophils # 0.0 (0-0.2) k/uL PT 9.7 (9.0-12.0) sec INR 0.9 (<1.2) APTT 23.4 (22.0-30.0) sec D-Dimer 0.18 (<0.60) mg/L FEU Sodium 140 (137-145) mmol/L Potassium 3.6 (3.5-5.1) mmol/L Chloride 112 H (98-107) mmol/L Carbon Dioxide 20 L (22-30) mmol/L Anion Gap 8 mmol/L BUN 9 (7-17) mg/dL Creatinine 0.74 (0.52-1.04) mg/dL Est GFR (CKD-EPI)AfAm >90 (>60 ml/min/1.73 sqM) Est GFR (CKD-EPI)NonAf >90 (>60 ml/min/1.73 sqM) Glucose 91 (74-99) mg/dL Calcium 9.2 (8.4-10.2) mg/dL Magnesium 1.9 (1.6-2.3) mg/dL Total Bilirubin 0.4 (0.2-1.3) mg/dL AST 21 (14-36) U/L ALT 9 (4-34) U/L Alkaline Phosphatase 54 (38-126) U/L Troponin I (0.000-0.034) ng/mL NT-Pro-B Natriuret Pep pg/mL Total Protein 6.4 (6.3-8.2) g/dL Albumin 3.7 (3.5-5.0) g/dL Lipase 122 (23-300) U/L 03/16/20 03/16/20 Range/Units 18:20 18:20 WBC (3.8-10.6) k/uL RBC (3.80-5.40) m/uL Hgb (11.4-16.0) gm/dL Hct (34.0-46.0) % MCV (80.0-100.0) fL MCH (25.0-35.0) pg MCHC (31.0-37.0) g/dL RDW (11.5-15.5) % Plt Count (150-450) k/uL Neutrophils % % Lymphocytes % % Monocytes % % Eosinophils % % Basophils % % Neutrophils # (1.3-7.7) k/uL Lymphocytes # (1.0-4.8) k/uL Monocytes # (0-1.0) k/uL Eosinophils # (0-0.7) k/uL Basophils # (0-0.2) k/uL PT (9.0-12.0) sec INR (<1.2) APTT (22.0-30.0) sec D-Dimer (<0.60) mg/L FEU Sodium (137-145) mmol/L Potassium (3.5-5.1) mmol/L Chloride (98-107) mmol/L Carbon Dioxide (22-30) mmol/L Anion Gap mmol/L BUN (7-17) mg/dL Creatinine (0.52-1.04) mg/dL Est GFR (CKD-EPI)AfAm (>60 ml/min/1.73 sqM) Est GFR (CKD-EPI)NonAf (>60 ml/min/1.73 sqM) Glucose (74-99) mg/dL Calcium (8.4-10.2) mg/dL Magnesium (1.6-2.3) mg/dL Total Bilirubin (0.2-1.3) mg/dL AST (14-36) U/L ALT (4-34) U/L Alkaline Phosphatase (38-126) U/L Troponin I <0.012 (0.000-0.034) ng/mL NT-Pro-B Natriuret Pep 46 pg/mL Total Protein (6.3-8.2) g/dL Albumin (3.5-5.0) g/dL Lipase (23-300) U/L Disposition Clinical Impression: Chest pain Disposition: ADMITTED IP TO THIS HOSP Condition: Stable Is patient prescribed a controlled substance at d/c from ED?: No Referrals: Tomas Brown MD [Primary Care Provider] - 1-2 days Time of Disposition: 20:10
[2020-03-16 18:28] LABS: Basophils % (A) 1 %; Eosinophils # (A) 0.2 k/uL (0-0.7); Eosinophils % (A) 4 %; HCT 37.8 % (34.0-46.0); HGB 13.2 gm/dL (11.4-16.0); Lymphocytes # (A) 1.9 k/uL (1.0-4.8); Lymphocytes % (A) 34 %; MCH 30.6 pg (25.0-35.0); MCHC 34.8 g/dL (31.0-37.0); MCV 87.9 fL (80.0-100.0); Monocytes # (A) 0.3 k/uL (0-1.0); Monocytes % (A) 5 %; Neutrophils % (A) 55 %; Platelet Count 237 k/uL (150-450); RDW 12.8 % (11.5-15.5); WBC 5.4 k/uL (3.8-10.6)
[2020-03-16 18:41] LABS: D-Dimer 0.18 mg/L FEU (<0.60); INR 0.9 (<1.2); Partial Thromboplastin Time 23.4 sec (22.0-30.0); Prothrombin Time 9.7 sec (9.0-12.0)
[2020-03-16 18:45] LABS: ALT 9 U/L (4-34); AST 21 U/L (14-36); African American GFR (CKD) >90 (>60 ml/min/1.73 sqM); Albumin 3.7 g/dL (3.5-5.0); Alkaline Phosphatase 54 U/L (38-126); Anion Gap 8 mmol/L; Blood Urea Nitrogen 9 mg/dL (7-17); Calcium 9.2 mg/dL (8.4-10.2); Carbon Dioxide 20 mmol/L (22-30); Chloride 112 mmol/L (98-107); Glucose 91 mg/dL (74-99); Magnesium 1.9 mg/dL (1.6-2.3); Non-African American GFR(CKD) >90 (>60 ml/min/1.73 sqM); Potassium 3.6 mmol/L (3.5-5.1); Sodium 140 mmol/L (137-145); Total Bilirubin 0.4 mg/dL (0.2-1.3); Total Protein 6.4 g/dL (6.3-8.2)
--- NOTE | 2020-03-16 19:02 | XR ---
EXAMINATION TYPE: XR chest 2V DATE OF EXAM: 03/16/2020 COMPARISON: NONE HISTORY: Chest pain TECHNIQUE: FINDINGS: Heart and mediastinum are normal. Lungs are clear. Diaphragm is normal. Bony thorax appears normal. IMPRESSION: Normal chest. Normal heart.
[2020-03-16] MEDS ORDERED: NITROGLYCERIN SL TABS 0.4 MG TAB SUBLINGUAL PRN (20:10)
[2020-03-16] MEDS ORDERED: MORPHINE SULFATE 2 MG/ML SYRINGE IVP PRN (20:10)
[2020-03-17 02:44] LABS: Cholesterol 144 mg/dL (<200); HDL Cholesterol 38 mg/dL (40-60); LDL Cholesterol,Calculated 98 mg/dL (0-99); Triglycerides 39 mg/dL (<150)
[2020-03-17] MEDS ORDERED: ASPIRIN 325 MG TAB PO SCH (09:00)
[2020-03-17 09:28] VITALS: BP 115/73; PULSE 83; RESP 16; TEMP 97.6; BMI 37.2
--- NOTE | 2020-03-17 10:10 | P.CRDCN ---
History of Present Illness History of present illness: HISTORY OF PRESENTING ILLNESS This is a pleasant 34-year-old female past medical history significant for fibromyalgia and osteoarthritis. 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 We have been asked to see in consultation for chest pain. She states for the last 2 days she has been experiencing an achy sensation in her chest. It intermittently radiates from the left to the right and into the left axillary region. It is reproducible on palpation. It is worsened by movement of her arms bilaterally. It is not respirophasic. She denies associated shortness of breath, dizziness, palpitations, nausea, vomiting or diaphoresis. She works a physically active job and states she has difficulty lifting due to the pain. DIAGNOSTICS EKG reveals sinus mechanism with no acute ST or T wave abnormalities noted. Chest xray negative for an acute cardiopulmonary process. Laboratory reviewed, CBC unremarkable, d-dimer 0.18, sodium 140, potassium 3.6, creatinine 0.74, cardiac enzymes negative 3, NT proBNP 46, LDL 98 and HDL 38. She takes no daily cardiac medications. REVIEW OF SYSTEMS At the time of my exam: CONSTITUTIONAL: Denies fever or chills. CARDIOVASCULAR: Denies chest pain, shortness of breath, orthopnea, PND or palpitations. RESPIRATORY: Denies cough. GASTROINTESTINAL: Denies abdominal pain, diarrhea, constipation, nausea or vomiting. MUSCULOSKELETAL: Denies myalgias. NEUROLOGIC: Denies numbness, tingling or weakness. ENDOCRINE: Denies fatigue, weight change, polydipsia or polyurina. GENITOURINARY: Denies burning, hematuria or urgency with micturation. HEMATOLOGIC: Denies history of anemia or bleeding. PHYSICAL EXAMINATION Blood pressure 119/73 heart rate 65 afebrile and maintaining oxygen saturation on room air. CONSTITUTIONAL: No apparent distress. Obese. HEENT: Head is normocephalic. Pupils are equal, round. Sclerae anicteric. Mucous membranes of the mouth are moist. No JVD. No carotid bruit. CHEST EXAMINATION: Lungs are clear to auscultation. No chest wall tenderness is noted on palpation or with deep breathing. HEART EXAMINATION: Regular rate and rhythm. S1, S2 heard. No murmurs, gallops or rub. ABDOMEN: Soft, nontender. Positive bowel sounds. EXTREMITIES: 2+ peripheral pulses, no lower extremity edema and no calf tenderness. NEUROLOGIC EXAMINATION: Patient is awake, alert and oriented x3. ASSESSMENT Chest pain, atypical for angina. Musculoskeletal in nature. History of fibromyalgia and osteoarthritis Obesity, BMI 37 PLAN An acute coronary event has been ruled out. Pain is related to musculoskeletal injury. No further cardiac workup at this time. Given her mother's history of heart failure in her 50s we will recommend outpatient stress testing when her muscle skeletal injury has resolved. Thank you kindly for this consultation. Nurse Practitioner note has been reviewed, I agree with a documented findings and plan of care. Patient was seen and examined. Past Medical History Past Medical History: Fibromyalgia, Osteoarthritis (OA) Additional Past Medical History / Comment(s): degen. disc in back, states heart murmur in 1994 that's been watched. History of Any Multi-Drug Resistant Organisms: None Reported Past Surgical History: Section, Cholecystectomy, Orthopedic Surgery Additional Past Surgical History / Comment(s): knee surgery Past Anesthesia/Blood Transfusion Reactions: Motion Sickness Past Psychological History: Anxiety, Depression Smoking Status: Never smoker Past Alcohol Use History: None Reported Past Drug Use History: None Reported Medications and Allergies Home Medications Medication Instructions Recorded Confirmed Type Acetaminophen with Codeine 1 tab PO DAILY PRN 03/16/20 03/16/20 History [Tylenol w/codeine #3] Albuterol Sulfate [Albuterol 2 puff PO RT-Q6H PRN 03/16/20 03/16/20 History Sulfate Hfa] Cyclobenzaprine [Flexeril] 10 mg PO BID 03/16/20 03/16/20 History Ibuprofen [Motrin] 800 mg PO TID PRN 03/16/20 03/16/20 History Loratadine [Claritin] 10 mg PO DAILY 03/16/20 03/16/20 History Topiramate [Topamax] 50 mg PO BID 03/16/20 03/16/20 History buPROPion SR [Wellbutrin Sr] 150 mg PO HS 03/16/20 03/16/20 History busPIRone HCL [Buspar] 30 mg PO BID 03/16/20 03/16/20 History Allergies Allergy/AdvReac Type Severity Reaction Status Date / Time hydromorphone [From Dilaudid] Allergy Swelling Verified 03/16/20 21:05 morphine Allergy Rash/Hives Verified 03/16/20 21:05 tomato Allergy Anaphylaxis Verified 03/16/20 21:05 Physical Exam Vitals: Vital Signs Temp Pulse Pulse Pulse Resp BP BP 03/17/20 09:00 97.6 F 83 16 115/73 03/17/20 03:00 97.9 F 65 119/73 03/16/20 22:10 85 18 101/63 03/16/20 21:08 98.1 F 76 118/78 03/16/20 18:21 86 18 124/73 03/16/20 18:11 83 03/16/20 17:40 98.3 F 102 H 18 122/82 Pulse Ox 03/17/20 09:00 100 03/17/20 03:00 99 03/16/20 22:10 03/16/20 21:08 100 03/16/20 18:21 99 03/16/20 18:11 03/16/20 17:40 100 Intake and Output 03/16/20 03/17/20 03/17/20 22:59 06:59 14:59 Intake Total 350 Output Total 0 Balance 350 0 Intake: Oral 350 Output: Urine 0 Other: Voiding Method Toilet Toilet # Voids 0 Weight 98.43 kg 98.43 kg Results 03/16/20 18:20 03/16/20 18:20 Cardiac Enzymes 03/16/20 03/16/20 03/16/20 Range/Units 18:20 18:20 21:29 AST 21 (14-36) U/L Troponin I <0.012 <0.012 (0.000-0.034) ng/mL 03/17/20 Range/Units 01:09 AST (14-36) U/L Troponin I <0.012 (0.000-0.034) ng/mL Coagulation 03/16/20 Range/Units 18:20 PT 9.7 (9.0-12.0) sec APTT 23.4 (22.0-30.0) sec Lipids 03/17/20 Range/Units 01:09 Triglycerides 39 (<150) mg/dL Cholesterol 144 (<200) mg/dL HDL Cholesterol 38 L (40-60) mg/dL CBC 03/16/20 Range/Units 18:20 WBC 5.4 (3.8-10.6) k/uL RBC 4.30 (3.80-5.40) m/uL Hgb 13.2 (11.4-16.0) gm/dL Hct 37.8 (34.0-46.0) % Plt Count 237 (150-450) k/uL Comprehensive Metabolic Panel 03/16/20 Range/Units 18:20 Sodium 140 (137-145) mmol/L Potassium 3.6 (3.5-5.1) mmol/L Chloride 112 H (98-107) mmol/L Carbon Dioxide 20 L (22-30) mmol/L BUN 9 (7-17) mg/dL Creatinine 0.74 (0.52-1.04) mg/dL Glucose 91 (74-99) mg/dL Calcium 9.2 (8.4-10.2) mg/dL AST 21 (14-36) U/L ALT 9 (4-34) U/L Alkaline Phosphatase 54 (38-126) U/L Total Protein 6.4 (6.3-8.2) g/dL Albumin 3.7 (3.5-5.0) g/dL Current Medications Generic Name Dose Route Start Last Admin Trade Name Freq PRN Reason Stop Dose Admin Morphine Sulfate 2 mg 03/16/20 20:10 Morphine Sulfate (Inj) IVP Q5M PRN Chest Pain Nitroglycerin 0.4 mg 03/16/20 20:10 Nitrostat SUBLINGUAL Q5M PRN Chest Pain Intake and Output 03/16/20 03/17/20 03/17/20 22:59 06:59 14:59 Intake Total 350 Output Total 0 Balance 350 0 Intake: Oral 350 Output: Urine 0 Other: Voiding Method Toilet Toilet # Voids 0 Weight 98.43 kg 98.43 kg Patient Weight 03/18/20 06:59 Weight 98.43 kg 03/16/20 18:20 03/16/20 18:20
== END 2020-03-17 11:10 | disposition home or self-care (01) ==
LOC: EC 17:37 → 3NCARDOBS 20:24
PROVIDERS: ADMIT Hospitalist; ATTEND Hospitalist
DX: R07.9 Chest pain, unspecified (principal); M79.7 Fibromyalgia; Z79.899 Other long term (current) drug therapy; Z82.49 Family history of ischemic heart disease and other diseases of the circulatory system; Z88.5 Allergy status to narcotic agent; Z91.018 Allergy to other foods; Z90.49 Acquired absence of other specified parts of digestive tract; Z03.818 Encounter for observation for suspected exposure to other biological agents ruled out
CPT/HCPCS: 93005 ×2; 96361 ×3; 96374; 99285; 36415; 85379; 83880; 80061; 80053; 83690; 83735; 84484 ×2; 85025; 85610; 85730; 71046; G0378 ×2; U0003; J1885

== ENCOUNTER → 2020-10-06 | Outpatient (CLI) | payer OTHER ==
[2020-10-06 19:03] LABS: HCT 41.5 % (37.2-46.3); HGB 13.8 g/dL (12.0-15.0); MCH 29.6 pg (27.0-32.0); MCHC 33.3 g/dL (32.0-37.0); MCV 89.1 fL (80.0-97.0); Mean Platelet Volume 11.6 fL (9.5-12.2); Platelet Count 279 X 10*3/uL (140-440); RBC 4.66 X 10*6/uL (4.10-5.20); RDW 12.4 % (11.5-14.5); WBC 5.59 X 10*3/uL (4.50-10.00)
[2020-10-06 19:14] LABS: % Iron Saturation 29.28 (12.00-45.00)
[2020-10-06 19:23] LABS: T4, Free (Free Thyroxine) 1.1 ng/dL (0.80-1.80)
== END | disposition home or self-care (01) ==
LOC: LABWHC1 12:07
PROVIDERS: ATTEND Internal Medicine
DX: D64.9 Anemia, unspecified (principal); R20.8 Other disturbances of skin sensation
CPT/HCPCS: 36415; 82306; 82607; 83540; 83550; 84439; 84443; 85027

== ENCOUNTER 2020-11-29 22:02 | Emergency (ER) | payer OTHER ==
[2020-11-29 22:29] VITALS: BP 123/76; PULSE 100; RESP 20; TEMP 97.9
--- NOTE | 2020-11-29 23:11 | ED ---
Headache HPI - General Chief Complaint: Headache Stated Complaint: Headache,cough Time Seen by Provider: 11/29/20 22:52 Mode of arrival: ambulatory Limitations: no limitations - History of Present Illness Initial Comments: This patient is a 35-year-old woman who presents with headache, sinus pressure, myalgias, fever. The patient states she was doing well until this morning when she felt like she was starting to sinus headache. Over the course the day she then noted onset of fever and chills and myalgias. MD Complaint: headache Onset/Timin -: days(s) Onset Description: gradual Location: right, left, frontal Severity: moderate Quality: aching Consistency: constant Improves With: nothing Worsens With: none Associated Symptoms: fever Other Symptoms: cough, other Treatments Prior to Arrival: none - Related Data Home Medications Medication Instructions Recorded Confirmed Acetaminophen with Codeine 1 tab PO DAILY PRN 03/16/20 03/16/20 [Tylenol w/codeine #3] Albuterol Sulfate [Albuterol 2 puff PO RT-Q6H PRN 03/16/20 03/16/20 Sulfate Hfa] Cyclobenzaprine [Flexeril] 10 mg PO BID 03/16/20 03/16/20 Ibuprofen [Motrin] 800 mg PO TID PRN 03/16/20 03/16/20 Loratadine [Claritin] 10 mg PO DAILY 03/16/20 03/16/20 Topiramate [Topamax] 50 mg PO BID 03/16/20 03/16/20 buPROPion SR [Wellbutrin SR] 150 mg PO HS 03/16/20 03/16/20 busPIRone HCL [Buspar] 30 mg PO BID 03/16/20 03/16/20 Allergies Allergy/AdvReac Type Severity Reaction Status Date / Time hydromorphone [From Dilaudid] Allergy Swelling Verified 11/29/20 22:29 morphine Allergy Rash/Hives Verified 11/29/20 22:29 tomato Allergy Anaphylaxis Verified 11/29/20 22:29 Review of Systems ROS Statement: Those systems with pertinent positive or pertinent negative responses have been documented in the HPI. ROS Other: All systems not noted in ROS Statement are negative. Constitutional: Reports: fever, chills. Denies: weakness Eyes: Denies: eye pain, vision change ENT: Reports: congestion. Denies: throat pain Respiratory: Reports: as per HPI, cough. Denies: dyspnea Cardiovascular: Denies: chest pain, palpitations Gastrointestinal: Denies: abdominal pain, vomiting, diarrhea Genitourinary: Denies: dysuria Skin: Denies: rash Neurological: Reports: as per HPI, headache Past Medical History Past Medical History: Fibromyalgia, Osteoarthritis (OA) Additional Past Medical History / Comment(s): degen. disc in back, states heart murmur in 1994 that's been watched. History of Any Multi-Drug Resistant Organisms: None Reported Past Surgical History: Section, Cholecystectomy, Orthopedic Surgery Additional Past Surgical History / Comment(s): knee surgery Past Anesthesia/Blood Transfusion Reactions: Motion Sickness Past Psychological History: Anxiety, Depression Smoking Status: Never smoker Past Alcohol Use History: None Reported Past Drug Use History: None Reported General Exam Limitations: no limitations General appearance: alert, in no apparent distress Head exam: Present: atraumatic, normocephalic Eye exam: Present: normal appearance. Absent: scleral icterus, conjunctival injection Neck exam: Present: normal inspection, full ROM. Absent: meningismus Respiratory exam: Present: normal lung sounds bilaterally. Absent: respiratory distress, wheezes, rales, rhonchi, stridor Cardiovascular Exam: Present: regular rate, normal rhythm, normal heart sounds. Absent: systolic murmur, diastolic murmur, rubs, gallop GI/Abdominal exam: Present: soft. Absent: tenderness Neurological exam: Present: alert Skin exam: Present: warm, dry, intact, normal color. Absent: rash Course Vital Signs 11/29/20 22:27 Temperature 97.9 F Pulse Rate 100 Respiratory 20 Rate Blood Pressure 123/76 O2 Sat by Pulse 100 Oximetry Medical Decision Making - Lab Data Lab Results 11/29/20 Range/Units 22:32 Coronavirus (PCR) Detected A (Not Detectd) Disposition Clinical Impression: COVID-19 Disposition: HOME SELF-CARE Condition: Good Instructions (If sedation given, give patient instructions): Coronavirus Disease 2019 (COVID-19) Is patient prescribed a controlled substance at d/c from ED?: No Referrals: Tomas Brown MD [Primary Care Provider] - 1-2 days
== END 2020-11-29 23:41 | disposition home or self-care (01) ==
LOC: EC 22:02
DX: U07.1 COVID-19 (principal); F41.9 Anxiety disorder, unspecified; F32.9 Major depressive disorder, single episode, unspecified; M19.90 Unspecified osteoarthritis, unspecified site
CPT/HCPCS: 87635; 99284

== ENCOUNTER 2022-06-13 23:52 | Emergency (ER) | payer OTHER ==
[2022-06-14 01:34] VITALS: RESP 16; TEMP 98.2
--- NOTE | 2022-06-14 02:56 | XR ---
EXAMINATION TYPE: XR chest 2V DATE OF EXAM: 06/14/2022 COMPARISON: 03/16/2020 HISTORY: Chest pain TECHNIQUE: FINDINGS: Heart and mediastinum are normal. Lungs are clear. Diaphragm is normal. Bony thorax appears normal. IMPRESSION: Normal chest. No change
--- NOTE | 2022-06-14 04:00 | ED ---
Chest Pain HPI - General Chief Complaint: Chest Pain Stated Complaint: Heart Palpitations Time Seen by Provider: 06/14/22 03:16 Source: patient Mode of arrival: ambulatory Limitations: no limitations - History of Present Illness Initial Comments: 37-year-old female since emergency room with reported chest pain. States that she was at work when she had onset of chest pain and palpitations around 5 PM. States that they're located over the left side of her chest without radiation. Has associated shortness of breath. No fevers, chills or cough. No nausea or vomiting. No diaphoresis. Denies concern for . No ripping or tearing sensation to her back. No calf pain or swelling. Reports that she does have a history of chest pain. Was hospitalized earlier this year and had an echo performed. [facility]. Denies any history of coronary disease. No other alleviating, precipitating or modifying factors - Related Data Home Medications Medication Instructions Recorded Confirmed Acetaminophen with Codeine 1 tab PO DAILY PRN 03/16/20 03/16/20 [Tylenol w/codeine #3] Albuterol Sulfate [Albuterol 2 puff PO RT-Q6H PRN 03/16/20 03/16/20 Sulfate Hfa] Cyclobenzaprine [Flexeril] 10 mg PO BID 03/16/20 03/16/20 Ibuprofen [Motrin] 800 mg PO TID PRN 03/16/20 03/16/20 Loratadine [Claritin] 10 mg PO DAILY 03/16/20 03/16/20 Topiramate [Topamax] 50 mg PO BID 03/16/20 03/16/20 buPROPion SR [Wellbutrin SR] 150 mg PO HS 03/16/20 03/16/20 busPIRone HCL [Buspar] 30 mg PO BID 03/16/20 03/16/20 Allergies Allergy/AdvReac Type Severity Reaction Status Date / Time hydromorphone [From Dilaudid] Allergy Swelling Verified 06/14/22 01:31 morphine Allergy Rash/Hives Verified 06/14/22 01:31 tomato Allergy Anaphylaxis Verified 06/14/22 01:31 Review of Systems ROS Statement: Those systems with pertinent positive or pertinent negative responses have been documented in the HPI. ROS Other: All systems not noted in ROS Statement are negative. EKG Findings - EKG Comments: EKG Findings:: EKG demonstrates sinus rhythm with rate of 89. CA interval 153. QRS 91. QTC 393. No acute ST segment elevations or depressions concerning for ischemic changes Past Medical History Past Medical History: Fibromyalgia, Osteoarthritis (OA) Additional Past Medical History / Comment(s): degen. disc in back, states heart murmur in 1994 that's been watched. History of Any Multi-Drug Resistant Organisms: None Reported Past Surgical History: Section, Cholecystectomy, Orthopedic Surgery Additional Past Surgical History / Comment(s): knee surgery Past Anesthesia/Blood Transfusion Reactions: Motion Sickness Past Psychological History: Anxiety, Depression Smoking Status: Never smoker Past Alcohol Use History: None Reported Past Drug Use History: None Reported General Exam Limitations: no limitations General appearance: alert, in no apparent distress Head exam: Present: atraumatic, normocephalic, normal inspection Eye exam: Present: normal appearance, PERRL, EOMI. Absent: scleral icterus, conjunctival injection, periorbital swelling ENT exam: Present: normal exam, mucous membranes moist Neck exam: Present: normal inspection. Absent: tenderness, meningismus, lymphadenopathy Respiratory exam: Present: normal lung sounds bilaterally. Absent: respiratory distress, wheezes, rales, rhonchi, stridor Cardiovascular Exam: Present: regular rate, normal rhythm, normal heart sounds. Absent: systolic murmur, diastolic murmur, rubs, gallop, clicks GI/Abdominal exam: Present: soft, normal bowel sounds. Absent: distended, tenderness, guarding, rebound, rigid Extremities exam: Present: normal inspection, full ROM, normal capillary refill. Absent: tenderness, pedal edema, joint swelling, calf tenderness Back exam: Present: normal inspection Neurological exam: Present: alert, oriented X3, CN II-XII intact Psychiatric exam: Present: normal affect, normal mood Skin exam: Present: warm, dry, intact, normal color. Absent: rash Course Vital Signs 06/14/22 06/14/22 01:31 05:21 Temperature 98.2 F Pulse Rate 93 82 Respiratory 16 16 Rate Blood Pressure 141/87 125/76 O2 Sat by Pulse 98 Oximetry Chest Pain MDM - MDM Upon arrival patient was placed into room 24. Thorough history of physical exam is performed. Patient placed on continuous pulse ox and cardiac monitoring. 12-lead EKG is obtained. Laboratory studies were conducted and reviewed. Troponin negative. Chest x-ray negative for any acute process. Also discussed the patient. As she has had a cardiac evaluation earlier this year patient will be discharged home. Recommend follow [facility] with [facility] for echo and possible stress test. Return for any new or worsening symptoms. Patient agreeable discharged home in stable condition Disposition Clinical Impression: Chest pain Disposition: HOME SELF-CARE Condition: Stable Instructions (If sedation given, give patient instructions): Chest Pain (ED) Additional Instructions: Please follow-up with the cardiology office - you need an echo, holter monitor and possible stress testing. Return for any new or worsening symptoms. Is patient prescribed a controlled substance at d/c from ED?: No Referrals: Tamika Johnson MD [Primary Care Provider] - 1-2 days [facility] [Provider Group] - 1-2 days Time of Disposition: 05:08
[2022-06-14 04:08] LABS: Basophils # (A) 0.1 k/uL (0-0.2); Basophils % (A) 1 %; Eosinophils # (A) 0.4 k/uL (0-0.7); Eosinophils % (A) 4 %; HCT 39.6 % (34.0-46.0); HGB 14.1 gm/dL (11.4-16.0); Lymphocytes # (A) 3.3 k/uL (1.0-4.8); Lymphocytes % (A) 34 %; MCH 30.6 pg (25.0-35.0); MCHC 35.5 g/dL (31.0-37.0); MCV 86.2 fL (80.0-100.0); Mean Platelet Volume 8.3; Monocytes # (A) 0.5 k/uL (0-1.0); Monocytes % (A) 5 %; Neutrophils # (A) 5.3 k/uL (1.3-7.7); Neutrophils % (A) 55 %; Platelet Count 241 k/uL (150-450); RDW 12.7 % (11.5-15.5); WBC 9.7 k/uL (3.8-10.6)
[2022-06-14 04:18] LABS: ALT 34 U/L (4-34); AST 30 U/L (14-36); African American GFR (CKD) >90 (>60 ml/min/1.73 sqM); Albumin 4.5 g/dL (3.5-5.0); Alkaline Phosphatase 90 U/L (38-126); Anion Gap 11 mmol/L; Blood Urea Nitrogen 10 mg/dL (7-17); Calcium 8.8 mg/dL (8.4-10.2); Carbon Dioxide 21 mmol/L (22-30); Chloride 107 mmol/L (98-107); Glucose 96 mg/dL (74-99); Magnesium 1.9 mg/dL (1.6-2.3); Non-African American GFR(CKD) >90 (>60 ml/min/1.73 sqM); Potassium 3.7 mmol/L (3.5-5.1); Sodium 139 mmol/L (137-145); Total Bilirubin 0.5 mg/dL (0.2-1.3); Total Protein 7.3 g/dL (6.3-8.2)
[2022-06-14 04:19] LABS: INR 0.9 (<1.2); Partial Thromboplastin Time 24.5 sec (22.0-30.0); Prothrombin Time 9.7 sec (9.0-12.0)
[2022-06-14 05:23] VITALS: BP 125/76; PULSE 82
== END 2022-06-14 05:23 | disposition home or self-care (01) ==
LOC: EC 23:52
DX: R07.9 Chest pain, unspecified (principal); M19.90 Unspecified osteoarthritis, unspecified site; F41.9 Anxiety disorder, unspecified; F32.A Depression, unspecified; Z88.5 Allergy status to narcotic agent; Z91.018 Allergy to other foods; Z79.899 Other long term (current) drug therapy
CPT/HCPCS: 36415; 71046; 80053; 83735; 84484; 85025; 85610; 85730; 99285

== ENCOUNTER 2023-02-12 13:16 | Emergency (ER) | payer OTHER ==
[2023-02-12 13:44] VITALS: BP 144/82; RESP 18; TEMP 98
[2023-02-12] MEDS ORDERED: KETOROLAC 15 MG/ML 1 ML VIAL IM STA (14:11)
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
--- NOTE | 2023-02-12 14:41 | XR ---
EXAMINATION TYPE: XR shoulder complete LT DATE OF EXAM: 02/12/2023 CLINICAL HISTORY: pain COMPARISON: NONE TECHNIQUE: Three views of the left shoulder are obtained. FINDINGS: There is no acute fracture/dislocation evident. The acromioclavicular and glenohumeral kole int spaces appear within normal limits. The visualized ribs are intact and unremarkable. IMPRESSION: 1. There is no acute fracture or dislocation. ICD 10 NO FRACTURE, INITIAL EVALUATION
--- NOTE | 2023-02-12 14:44 | XR ---
EXAMINATION TYPE: XR tibia fibula LT DATE OF EXAM: 02/12/2023 CLINICAL HISTORY: pain TECHNIQUE: AP and lateral images of the left tibia and fibula are obtained. COMPARISON: None. FINDINGS: There is no acute fracture/dislocation evident. The joint spaces appear within normal jane its. The overlying soft tissue appears unremarkable. IMPRESSION: There is no acute fracture or dislocation seen. ICD 10 NO FRACTURE, INITIAL EVALUATION
[2023-02-12] MEDS ORDERED: BACITRACIN OINT 1 EACH PACKET TOPICAL ONE (14:58)
[2023-02-12 15:39] VITALS: PULSE 73
== END 2023-02-12 15:38 | disposition home or self-care (01) ==
LOC: EC 13:16
DX: S00.83XA Contusion of other part of head, initial encounter (principal); S80.12XA Contusion of left lower leg, initial encounter; S40.212A Abrasion of left shoulder, initial encounter; F32.A Depression, unspecified; F41.9 Anxiety disorder, unspecified; M19.90 Unspecified osteoarthritis, unspecified site; M79.7 Fibromyalgia; Z79.899 Other long term (current) drug therapy; Z88.5 Allergy status to narcotic agent; Z91.018 Allergy to other foods; V49.40XA Driver injured in collision with unspecified motor vehicles in traffic accident, initial encounter; Y92.410 Unspecified street and highway as the place of occurrence of the external cause
CPT/HCPCS: 73030; 73590; 72125; 70450; 99284; 96372; J1885

== ENCOUNTER → 2023-10-06 | Outpatient (CLI) | payer OTHER ==
--- NOTE | 2023-10-06 18:00 | US ---
EXAMINATION TYPE: US pelvis complete transvag DATE OF EXAM: 10/06/2023 COMPARISON: None CLINICAL INDICATION: Female, 38 years old with history of R10.84 GENERALIZED ABDOMINAL PAIN; Pain x 6 months, pain has been worse x 3 months. . hx miscarriage, tubal ligation, PCOS, 2 C sections. TECHNIQUE: Transvaginal (TV) and Transabdominal (TA) . Transabdominal sonographic images of the pel vis were acquired. Transvaginal sonographic images were medically necessary to better assess the fol lowing anatomy: ovaries Date of LMP: 09/11/2023 EXAM MEASUREMENTS: Uterus: 9.2 x 5.9 x 5.0 cm Endometrial Stripe: 1.14 cm Right Ovary: 3.0 x 2.7 x 1.9 cm Left Ovary: Obscured by bowel gas. 1. Uterus: Anteverted. Mildly heterogeneous myometrium. Anechoic area seen in cervix: 1.1 x 1.0 x 0.7 cm compatible with a cervical nabothian cyst. 2. Endometrium: 1.14 cm 3. Right Ovary: Echogenic focus seen: 0.4 x 0.2 x 0.1 cm., Nonspecific calcification 4. Left Ovary: Obscured. 5. Bilateral Adnexa: Appear wnl 6. Posterior cul-de-sac: Trace cul-de-sac free fluid likely physiologic. IMPRESSION: 1. Endometrial stripe thickness of 1. One centimeters should correspond to the secretory phase of the menstrual cycle. 2. Left ovary obscured and could not be visualized. 3. Trace cul-de-sac free fluid likely physiologic.
--- NOTE | 2023-10-06 18:08 | US ---
EXAMINATION TYPE: US abdomen complete DATE OF EXAM: 10/06/2023 COMPARISON: None CLINICAL INDICATION: Female, 38 years old with history of R10.84 GENERALIZED ABDOMINAL PAIN; Intermit tently x 6 months, patient states pain has gotten worse x 3 months. Hx cholecystectomy in 2012. TECHNIQUE: Multiple sonographic images of the abdomen are obtained. FINDINGS: EXAM MEASUREMENTS: Liver Length: 15.0 cm Gallbladder: Surgically absent. CBD: 0.42 cm Spleen: Unable to accurately measure. Right Kidney: 11.5 x 5.1 x 5.1 cm Left Kidney: 11.3 x 6.0 x 5.1 cm CIRCULAR RIPSAW OPERATOR NOTES: Limited due to gas. Pancreas: Head and tail not well seen. Liver: Slightly coarsened echotexture may be on a technical basis. No focal lesion seen. Gallbladder: Surgically absent. Evidence for sonographic Davis's sign: No CBD: Portions seen appear wnl Spleen: Very limited. Right Kidney: Lower pole is gassed out. No hydronephrosis or masses seen Left Kidney: No hydronephrosis or masses seen Upper IVC: Appears wnl Abd Aorta: Appears wnl IMPRESSION: Exam limitations due to bowel gas and body habitus. Status post cholecystectomy. No biliary ductal di latation. Unable to accurately measure spleen size.
== END | disposition home or self-care (01) ==
LOC: RADUSWWP 07:30
PROVIDERS: ATTEND Family Medicine
DX: E28.2 Polycystic ovarian syndrome (principal); R10.84 Generalized abdominal pain; Z98.51 Tubal ligation status; Z90.49 Acquired absence of other specified parts of digestive tract
CPT/HCPCS: 76700; 76830; 76856

== ENCOUNTER → 2023-12-07 | Outpatient (CLI) | payer OTHER ==
[2023-12-07 16:13] LABS: Basophils # (A) 0.06 X 10*3/uL (0.00-0.10); Basophils % (A) 0.7 %; Eosinophils # (A) 0.43 X 10*3/uL (0.04-0.35); Eosinophils % (A) 5.3 %; HCT 40.4 % (37.2-46.3); HGB 13.4 g/dL (12.0-15.0); Lymphocytes # (A) 2.72 X 10*3/uL (0.90-5.00); Lymphocytes % (A) 33.3 %; MCH 29.5 pg (27.0-32.0); MCHC 33.2 g/dL (32.0-37.0); Mean Platelet Volume 11.4 FL (9.5-12.2); Monocytes # (A) 0.43 X 10*3/uL (0.20-1.00); Monocytes % (A) 5.3 %; NRBC Per 100 WBC 0 X 10*3/uL (0.00-0.01); Neutrophils # (A) 4.52 X 10*3/uL (1.80-7.70); Neutrophils % (A) 55.3 %; Platelet Count 293 X 10*3/uL (140-440); RBC 4.54 X 10*6/uL (4.10-5.20); WBC 8.17 X 10*3/uL (4.50-10.00)
[2023-12-07 16:30] LABS: ALT 23 U/L (8-44); AST 26 U/L (13-35); Albumin 4.1 g/dL (3.8-4.9); Albumin/Globulin Ratio 1.58 Ratio (1.60-3.17); Alkaline Phosphatase 77 U/L (41-126); BUN/Creat Ratio 11.71 Ratio (12.00-20.00); Blood Urea Nitrogen 8.2 mg/dL (9.0-27.0); Calcium 8.9 mg/dL (8.7-10.3); Carbon Dioxide 18.7 mmol/L (21.6-31.8); Chloride 109 mmol/L (96-109); Globulin 2.6 g/dL (1.6-3.3); Glucose 89 mg/dL (70-110); Potassium 4.4 mmol/L (3.5-5.5); Sodium 139 mmol/L (135-145); Total Bilirubin 0.3 mg/dL (0.3-1.2); Total Protein 6.7 g/dL (6.2-8.2)
[2023-12-07 21:09] LABS: Gliadin AB IgA, Deaminated Negative (Negative); Gliadin AB IgA, Unit <0.5 U/mL; Gliadin AB IgG, Deaminated Negative (Negative); Gliadin AB IgG, Unit <0.4 U/mL
== END | disposition home or self-care (01) ==
LOC: LABWHC1 09:30
PROVIDERS: ATTEND Nurse Practitioner Family
DX: R19.4 Change in bowel habit (principal)
CPT/HCPCS: 36415; 80053; 83516; 85025